=== PATIENT | female | born 1995 | race African-American/Black ===

== ENCOUNTER 2016-11-16 11:49 | Emergency (ER) | payer OTHER ==
[~2016-11-16] VITALS: Ht 160 cm; Wt 96.5 kg
[~2016-11-16 11:49] MED LIST: BUTA1CAP PO
[2016-11-16 11:55] VITALS: BP 158/79; PULSE 85; RESP 16; TEMP 98; O2SAT 100
[2016-11-16] MEDS ORDERED: SODIUM CHLOR 0.9% 1000 ML INJ 1,000 ML IV ONE (12:45)
[2016-11-16] MEDS ORDERED: KETOROLAC TROMETHAMINE 30 MG/ML (IVP) VIAL IV PUSH ONE (12:45)
--- NOTE | 2016-11-16 12:45 | PD ---
HPI Chief Complaint: Pain: Acute or Chronic Time Seen by Provider: 12:45 Travel History International Travel<30 days: No Contact w/Intl Traveler<30days: No Traveled to known affect area: No History of Present Illness HPI 20-year-old female presents to department for evaluation of anterior chest pain , reproducible upon palpation and deep inspiration intermittently occurring for the last 2 months. Patient states preceding the onset of that she had a cold that she was coughing a lot with. Denies any recent respiratory illness. No fever or chills. No nausea or vomiting. Pain does not radiate anywhere. No cardiac history. No IV drug use Patient has no other symptoms to report. PFSH Past Medical History Diminished Hearing: No Headaches: Yes Neurologic: Yes Migraines: Yes Tetanus Vaccination: > 5 Years Influenza Vaccination: No ?: Not LMP: 11/16/16 : 0 Past Surgical History Surgical History: No Previous Surgery Social History Alcohol Use: No (PT DENIES) Tobacco Use: No (PT DENIES) Substance Use: No (PT DENIES) Allergies-Medications (Allergen,Severity, Reaction): Coded Allergies: No Known Allergies (Unverified , 11/16/16) Reported Meds & Prescriptions Reported Meds & Active Scripts Active Medrol Dosepak (Methylprednisolone) 4 Mg Dspk 4 Mg PO DIRECTED Per Pharmacist direction Review of Systems Except as stated in HPI: all other systems reviewed are Neg Physical Exam Narrative GENERAL: Well-nourished female patient, in no acute distress SKIN: Focused skin assessment warm/dry. HEAD: Atraumatic. Normocephalic. EYES: Pupils equal and round. No scleral icterus. No injection or drainage. ENT: No nasal bleeding or discharge. Mucous membranes pink and moist. NECK: Trachea midline. No JVD. CARDIOVASCULAR: Regular rate and rhythm. No murmur appreciated. RESPIRATORY: No accessory muscle use. Clear to auscultation. Breath sounds equal bilaterally. Tenderness elicited to palpation of the anterior chest wall. GASTROINTESTINAL: Abdomen soft, non-tender, nondistended. Hepatic and splenic margins not palpable. MUSCULOSKELETAL: No obvious deformities. No clubbing. No cyanosis. No edema. NEUROLOGICAL: Awake and alert. No obvious cranial nerve deficits. Motor grossly within normal limits. Normal speech. PSYCHIATRIC: Appropriate mood and affect; insight and judgment normal. Data Data Last Documented VS Vital Signs Date Time Temp Pulse Resp B/P Pulse Ox O2 Delivery O2 Flow Rate FiO2 11/16/16 15:33 70 16 128/70 98 11/16/16 11:55 98.0 Room Air Orders Electrocardiogram (11/16/16 11:59) Chest, Single Ap (11/16/16 ) Iv Access Insert/Monitor (11/16/16 12:43) Complete Blood Count With Diff (11/16/16 12:43) Basic Metabolic Panel (Bmp) (11/16/16 12:43) Urinalysis - C+S If Indicated (11/16/16 12:43) Sodium Chlor 0.9% 1000 Ml Inj (Ns 1000 M (11/16/16 12:45) Ketorolac Inj (Toradol Inj) (11/16/16 12:45) Ed Urine Pregnancytest Poc (11/16/16 12:44) Labs Laboratory Tests Test 11/16/16 11/16/16 12:41 14:13 White Blood Count 8.9 TH/MM3 Red Blood Count 4.65 MIL/MM3 Hemoglobin 13.6 GM/DL Hematocrit 41.6 % Mean Corpuscular Volume 89.5 FL Mean Corpuscular Hemoglobin 29.3 PG Mean Corpuscular Hemoglobin 32.7 % Concent Red Cell Distribution Width 13.5 % Platelet Count 385 TH/MM3 Mean Platelet Volume 8.8 FL Neutrophils (%) (Auto) 72.5 % Lymphocytes (%) (Auto) 20.9 % Monocytes (%) (Auto) 5.6 % Eosinophils (%) (Auto) 0.3 % Basophils (%) (Auto) 0.7 % Neutrophils # (Auto) 6.5 TH/MM3 Lymphocytes # (Auto) 1.9 TH/MM3 Monocytes # (Auto) 0.5 TH/MM3 Eosinophils # (Auto) 0.0 TH/MM3 Basophils # (Auto) 0.1 TH/MM3 CBC Comment DIFF FINAL Differential Comment Sodium Level 138 MEQ/L Potassium Level 3.9 MEQ/L Chloride Level 104 MEQ/L Carbon Dioxide Level 26.8 MEQ/L Anion Gap 7 MEQ/L Blood Urea Nitrogen 11 MG/DL Creatinine 0.89 MG/DL Estimat Glomerular Filtration 96 ML/MIN Rate Random Glucose 81 MG/DL Calcium Level 8.9 MG/DL Urine Color LIGHT-YELLOW Urine Turbidity HAZY Urine pH 6.0 Urine Specific [place] 1.006 Urine Protein NEG mg/dL Urine Glucose (UA) NEG mg/dL Urine Ketones NEG mg/dL Urine Occult Blood MOD Urine Nitrite NEG Urine Bilirubin NEG Urine Urobilinogen LESS THAN 2.0 MG/DL Urine Leukocyte Esterase MOD Urine RBC 3 /hpf Urine WBC 4 /hpf Urine Squamous Epithelial 2 /hpf Cells Urine Amorphous Sediment RARE Urine Bacteria FEW /hpf Urine Mucus FEW /lpf Microscopic Urinalysis Comment CULT NOT INDICATED MDM Medical Decision Making Medical Screen Exam Complete: Yes Emergency Medical Condition: Yes Medical Record Reviewed: Yes Differential Diagnosis Chest wall pain versus pleuritic pain versus costochondritis versus muscle strain versus spasm versus bronchospasm Narrative Course 20-year-old female presents to emergency department for evaluation. Patient appears without distress. Vital signs are stable. Patient does have tenderness to palpation of anterior chest wall. Symptoms did come after a viral upper respiratory illness. This is likely a costochondritis. Patient will be treated as such. She is encouraged to follow-up with primary care provider and return immediately with any acute worsening of symptoms. Diagnosis Primary Impression: Costochondritis, acute Referrals: Primary Care Physician Patient Instructions: Costochondritis (ED), General Instructions Additional Instructions: Follow up with your primary care provider Return to ED with acute worsening of symptoms Med/Other Pt SpecificInfo: Prescription(s) given Scripts Methylprednisolone Dosepak (Medrol Dosepak)4 Mg Dspk4 Mg PO DIRECTED #1 DSPK Ref 0 Per Pharmacist direction Prov:Dahlia Sherwood 11/16/16 Disposition: 01 DISCHARGE HOME Condition: Stable Dahlia Sherwood Nov 16, 2016 12:45
[2016-11-16 13:01] LABS: AUTOMATED NEUTROPHIL # 6.5 TH/MM3 (1.8-7.7); BASOPHIL # 0.1 TH/MM3 (0-0.2); BASOPHIL % 0.7 % (0.0-2.0); EOSINOPHIL % 0.3 % (0.0-4.0); HEMATOCRIT 41.6 % (35.0-46.0); HEMO FLAGS DIFF FINAL; LYMPH % 20.9 % (9.0-44.0); LYMPHOCYTE # 1.9 TH/MM3 (1.0-4.8); MEAN CELL VOLUME 89.5 FL (80.0-100.0); MEAN CORPUSCULAR HEMOGLOBIN 29.3 PG (27.0-34.0); MEAN CORPUSCULAR HGB CONC 32.7 % (32.0-36.0); MONO % 5.6 % (0.0-8.0); NEUT % 72.5 % (16.0-70.0); PLATELET COUNT 385 TH/MM3 (150-450); RED BLOOD COUNT 4.65 MIL/MM3 (4.00-5.30); RED CELL DISTRIBUTION WIDTH 13.5 % (11.6-17.2); WHITE BLOOD COUNT 8.9 TH/MM3 (4.0-11.0)
--- NOTE | 2016-11-16 13:16 | RADRPT ---
EXAM DATE/TIME: 11/16/2016 13:00 [facility] COMPARISON: No previous studies available for comparison. INDICATIONS : Chest pain and tightness x2 months. MEDICAL HISTORY : None. SURGICAL HISTORY : None. ENCOUNTER: Initial ACUITY: 3 months PAIN SCORE: 8/10 LOCATION: Bilateral chest FINDINGS: A single view of the chest demonstrates the lungs to be symmetrically aerated without evidence of mas s, infiltrate or effusion. The cardiomediastinal contours are unremarkable. Osseous structures are intact. CONCLUSION: No acute disease. Bert Reeves MD FACR on November 16, 2016 at 13:14 Board Certified Radiologist. This report was verified electronically.
[2016-11-16 13:19] LABS: BICARBONATE 26.8 MEQ/L (21.0-32.0); POTASSIUM 3.9 MEQ/L (3.5-5.1)
[2016-11-16 14:19] VITALS: RESP 17
[2016-11-16] MEDS ORDERED: MEDR4PAK PO (14:39)
[2016-11-16 15:28] LABS: BACTERIA, URINE FEW /hpf; BLOOD, URINE MOD (NEG); COMMENT (UR) CULT NOT INDICATED; CULTURE IF INDICATED CULT NOT INDICATED; GLUCOSE,URINE NEG (NEG); KETONE, URINE NEG (NEG); MUCUS URINE FEW /lpf (OCC); NITRITE,URINE NEG (NEG); SQUAMOUS EPITHELIAL CELL URINE 2 /hpf (0-5); URINE COLOR LIGHT-YELLOW (YELLW/STRAW)
[2016-11-16 15:33] VITALS: BP 128/70
--- NOTE | 2016-11-17 09:22 | EKG ---
Date Performed: 11/16/2016 Time Performed: 12:46:32 PTAGE: 20 years EKG: Sinus rhythm NORMAL ECG PREVIOUS TRACING : 02/16/2016 13.31 Compared to prior tracing no significant change DOCTOR: Aneudy Lee Interpretating Date/Time 11/17/2016 09:09:15
== END 2016-11-16 15:37 | disposition home or self-care (01) ==
LOC: NEPD 11:49
DX: M94.0 Chondrocostal junction syndrome [Tietze] (principal)
CPT/HCPCS: 71010; 80048; 81001; 84703; 85025; 93005; 96361; 96374; 99285; J1885; J7030